=== PATIENT | female | born 1985 | race Caucasian/White ===

== ENCOUNTER 2017-12-16 12:06 | Emergency (ER) | payer OTHER ==
[2017-12-16 13:13] LABS: ADD MAN DIFF? NO; BASOPHIL # 0.1 10^3/ul (0.0-0.1); BASOPHILS % 0.8 % (0.0-2.0); EOSINOPHILS # 0.1 10^3/ul (0.0-0.5); EOSINOPHILS % 0.8 % (0.0-7.0); HEMOGLOBIN 12.8 g/dl (12.0-16.0); LYMPHOCYTES # 2.2 10^3/ul (0.8-2.9); MEAN CORPUSCULAR HEMOGLOBIN 30.7 pg (29.0-33.0); MEAN CORPUSCULAR HGB CONC 33.7 g/dl (32.0-37.0); MEAN CORPUSCULAR VOLUME 91.1 fl (82.0-101.0); MEAN PLATELET VOLUME 11.2 fl (7.4-10.4); MONOCYTE # 0.5 10^3/ul (0.3-0.9); MONOCYTES % 5.1 % (0.0-11.0); NEUTROPHILS % 71.1 % (39.0-77.0); PLATELET COUNT 208 10^3/UL (140-415); RED BLOOD COUNT 4.17 10^6/ul (4.20-5.40); RED CELL DISTRIBUTION WIDTH 13.3 % (11.5-14.5)
[2017-12-16 13:13] LABS: WHITE BLOOD COUNT 9.8 10^3/ul (4.8-10.8)
[2017-12-16] MEDS: DIPHENHYDRAMINE 50 MG INJ IV (13:19)
[2017-12-16] MEDS: SOD CHLORIDE 0.9% 1,000 ML IV (13:19)
[2017-12-16] MEDS: PROCHLORPERAZINE 10 MG INJ IV (13:28)
[2017-12-16 13:33] LABS: ANION GAP 10 (8-16); BLOOD UREA NITROGEN 5 mg/dl (7-20); CALCIUM 8.8 mg/dl (8.4-10.2); CARBON DIOXIDE 26 mmol/L (21-31); CHLORIDE 108 mmol/L (97-110); CREATININE 0.78 mg/dl (0.44-1.00); GLUCOSE 71 mg/dl (70-220); INR 0.96; PARTIAL THROMBOPLASTIN TIME 28.2 Sec (25.0-35.0); POTASSIUM 3.5 mmol/L (3.5-5.1); PROTIME 12.9 Sec (11.9-14.9); SODIUM 140 mmol/L (135-144)
[2017-12-16] MEDS: KETOROLAC 30 MG INJ IV (14:07)
== END 2017-12-16 14:46 | disposition home or self-care (01) ==
LOC: FTE 12:06 → E/R 14:46
DX: R51 Headache (principal); R40.2142 Coma scale, eyes open, spontaneous, at arrival to emergency department; R40.2252 Coma scale, best verbal response, oriented, at arrival to emergency department; R40.2362 Coma scale, best motor response, obeys commands, at arrival to emergency department; R06.02 Shortness of breath
CPT/HCPCS: 70450; 80048; 81025; 85025; 85610; 85730; 96374; 96375; 99285-25